=== PATIENT | female | born 1950 | race African-American/Black ===

== ENCOUNTER 2016-11-20 10:17 | Emergency (ER) | payer BC ==
[~2016-11-20 10:17] MED LIST: AMB10 PO; AMB5 PO; CHANTIX1 PO; CLARIT10 PO; L40 PO; MAXALT-MLT5 MG PO; MONODOX100 MG PO; MUCINEX DM1 TAB PO; NASONEX NAS; NEUR600 PO; NORV10 PO; NORVASC PO; PERCOCET1 TA4 PO; PRILOSEC40 MG PO; PROVENTSOL INH; SPIRIVA INH; SYMBICORT 160/41 INH INH; TRAZ100 PO; ULTRAM50 PO; VENTOLIN HFA INH; [UNRECOGNIZED DRUG - REMARK]
[2016-11-20 12:36] LABS: INFLUENZA A SCREEN NEGATIVE (NEGATIVE); INFLUENZA B SCREEN NEGATIVE (NEGATIVE)
[2016-11-20 13:06] LABS: BASOPHILS 0.3 %; BASOPHILS ABSOLUTE 0.02 10/3/uL (0.0-0.16); EOSINOPHILS 1.1 %; EOSINOPHILS ABSOLUTE 0.07 10/3/uL (0.0-0.53); HEMATOCRIT 37.5 % (36.0-48.0); HEMOGLOBIN 11.7 g/dL (12.0-16.0); LYMPHOCYTES 36.1 %; LYMPHOCYTES ABSOLUTE 2.26 10/3/uL (0.67-4.30); MEAN CORPUS HGB CONC 31.2 g/dL (32.0-36.0); MEAN CORPUSCULAR VOLUME 70.4 fL (80-100); MEAN PLATELET VOLUME 10.6 fL (9.2-13.0); MONOCYTES 5.3 %; MONOCYTES ABSOLUTE 0.33 10/3/uL (0.21-1.20); NEUTROPHILS 57.2 %; NEUTROPHILS ABSOLUTE 3.58 10/3/uL (2.02-8.40); PLATELET COUNT 243 10/3/uL (150-400); RED CELL COUNT 5.33 10/6/uL (4.0-5.6); WHITE BLOOD CELLS 6.3 10/3/uL (4.5-10.5)
[2016-11-20 13:08] LABS: MANUAL DIFF NO %
[2016-11-20 13:21] LABS: ALBUMIN 3.6 G/DL (3.5-5.0); ALKALINE PHOSPHATASE 99 U/L (45-117); BUN (BLOOD UREA NITROGEN) 19 MG/DL (6-23); CALCIUM, SERUM 9.2 MG/DL (8.5-10.4); CHLORIDE, SERUM 106 MMOL/L (96-112); CO2 (CARBON DIOXIDE) 24 MMOL/L (24-34); CPK 75 U/L (0-200); CREATININE 0.89 MG/DL (0.55-1.02); GFR AFRICAN AMERICAN 78 ML/MIN (>=60); GFR NON AFRICAN AMERICAN 67 ML/MIN (>=60); GLOBULIN 3.6 G/DL (2.5-4.1); GLUCOSE, SERUM 92 MG/DL (60-99); POTASSIUM, SERUM 3.9 MMOL/L (3.5-5.3); SGOT(AST) 10 U/L (5-40); SGPT(ALT) 15 U/L (5-65); SODIUM, SERUM 141 MMOL/L (135-148); TOTAL BILIRUBIN 0.6 MG/DL (0-1.2); TOTAL PROTEIN 7.2 G/DL (6.0-8.5)
[2016-11-20 13:23] LABS: PLATELET ESTIMATE ADQ (ADEQUATE)
[2016-11-20 13:24] LABS: RBC MORPHOLOGY NORM (NORMAL)
[2016-11-20 14:22] LABS: ASCORBIC ACID (UR NOT ORDER) 40 (NEG); BILIRUBIN, URINE NEGATIVE (NEG); ER URINALYSIS TAT 0 Hrs 18 Mins; KETONE, URINE 20 MG/DL (NEG); LEUKOCYTE ESTERASE(NOT OR NEG (NEG); NITRITE (URINE) NEG (NEG); WBC (NOT ORDERED) (RFLEX) 1 (0-5)
[2017-01-12] MEDS ORDERED: SPIRIVA INH (15:44)
[2017-01-12] MEDS ORDERED: SYMBICORT 160/41 INH INH (15:45)
[2017-01-12] MEDS ORDERED: PRINZIDE1 TA1 PO (15:46)
[2017-01-12] MEDS ORDERED: PERCOCET 10/3251 TAB PO (15:47)
[2017-01-12] MEDS ORDERED: ACT300 PO (15:47)
[2017-01-12] MEDS ORDERED: PROTONIX PO (15:48)
[2017-01-12] MEDS ORDERED: AMB10 PO (15:48)
[2017-01-12] MEDS ORDERED: PREDNISOLO15 MG/5 M1 OPH (15:49)
[2017-01-12] MEDS ORDERED: ACULAR OPH (15:50)
== END 2016-11-20 15:27 | disposition home or self-care (01) ==
LOC: ER 10:17
PROVIDERS: Emergency Medicine
DX: K29.70 Gastritis, unspecified, without bleeding (principal); T38.0X5A Adverse effect of glucocorticoids and synthetic analogues, initial encounter; J45.909 Unspecified asthma, uncomplicated; J44.9 Chronic obstructive pulmonary disease, unspecified; I10 Essential (primary) hypertension; K21.9 Gastro-esophageal reflux disease without esophagitis; F32.9 Major depressive disorder, single episode, unspecified; F17.200 Nicotine dependence, unspecified, uncomplicated; Z87.01 Personal history of pneumonia (recurrent); Z79.899 Other long term (current) drug therapy
CPT/HCPCS: 71010; 80053; 81001; 82550; 83690; 85025; 87804; 96374; 99285; A9270-GY; C9113; J2405

== ENCOUNTER 2016-12-13 12:17 | Inpatient (IN) | payer BC ==
--- NOTE | ~2016-12-13 | DS ---
Discharge Summary [facility] [address] [facility] [place]. [address] NAME: CHANEL MITCHELL : 48 STATUS : DIS Francisco PAT#: [id number] AGE: 66 ADM/REG DATE : 12/13/16 MR#: [id number] REPORT SERV DATE: 12/16/16 DICTATED BY: HERMILA VALENZUELA DATE: 12/16/16 REPORT STATUS : Draft TRANSCRIBED BY: MODL DATE: 12/16/16 ADMISSION DATE: 12/13/2016 DISCHARGE DATE: 12/16/2016 HOSPITAL COURSE: A 66-year-old female with history of hypertension, COPD, chronic lower extremity edema, GERD, peptic ulcer disease, known additional history of anxiety, obesity, migraine headaches on Topamax, tonsillectomy, abdominal hysterectomy, bilateral rotator cuff surgery, bilateral knee arthroscopy, and total knee replacement. The patient came in with significant anorexia, nausea, vomiting, abdominal pain, diarrhea. The patient states she has lost about 30 pounds the last five weeks, has seen Dr. Hernandez as an outpatient, prescribed Linzess for constipation, took that for two days, resulted in severe diarrhea and as a result, she stopped her Linzess. She did have some increased urinary odor, seemed to have pyuria here, had a CT abdomen and pelvis here, showed no acute intra-abdominal process, got a gallbladder ultrasound. She has had cholelithiasis, no bile duct dilation. I did a HIDA scan. This was normal. She had endoscopy with normal esophagus, stomach, and duodenum visualized. Dr. Perez from GI was consulted. Dr. Perez felt that as well as I did to favor follow up Dr. Hernandez and himself in next two to six weeks for possible elective cholecystectomy. If the patient's UTI symptoms do not improve with Levaquin, Flagyl as well as considering possible extra gallbladder etiology including possible mesenteric pathology. The patient has denied though any postprandial abdominal pain but she does have family member who have early CAD. Could consider possible IBS as well. If indeed with despite Ursodiol, the patient develops biliary colic, could consider possible elective cholecystectomy. CONSULTS: GI and Surgery. DISCHARGE DIAGNOSES: Nausea, vomiting, diarrhea, hypertension, chronic obstructive pulmonary disease, urinary tract infection, weight loss, anorexia has improved to soft diet. DISCHARGE MEDICATIONS: Gabapentin 100 p.o. t.i.d. for neuropathy, multivitamin tablet p.o. daily, nicotine transdermal patch 21 mg patch daily for smoking cessation, Protonix 40 p.o. daily use for 30 days as well as Spiriva, home dose Topamax 25 p.o. daily, Levaquin 750 p.o. daily just for five days, Flagyl 500 p.o. t.i.d., just for five days, Dulera home dose, lisinopril/hydrochlorothiazide 20/12.5 p.o. daily, Percocet p.r.n., and ursodiol 300 p.o. b.i.d. FOLLOWUP: Follow up with Dr. Perez in four to eight weeks. Follow up with PCP in two weeks. Follow up with DAYO Hernandez in two to six weeks. Discharge home with home health if desires. PROCEDURE: Endoscopy, see above. All questions were answered. It took well over 30 minutes to do. Discharge Summary [address] [address] NAME: CHANEL MITCHELL : 48 STATUS : DIS Francisco PAT#: [id number] AGE: 66 ADM/REG DATE : 12/13/16 MR#: [id number] REPORT SERV DATE: 12/16/16 DICTATED BY: HERMILA VALENZUELA DATE: 12/16/16 REPORT STATUS : Draft TRANSCRIBED BY: JATIN DATE: 12/16/16 [place]/JATIN Hermila Valenzuela DO / [id number] CC: DO Columba Pickett M.D.
--- NOTE | ~2016-12-13 | CN ---
Consultation Report [facility] [address] [place]. [address] NAME: CHANEL MITCHELL : 48 STATUS : ADM Francisco PAT#: [id number] AGE: 66 ADM/REG DATE : 12/13/16 MR#: [id number] REPORT SERV DATE: 12/14/16 DICTATED BY: JACE MILLIGAN DATE: 12/14/16 REPORT STATUS : Draft TRANSCRIBED BY: MODL DATE: 12/14/16 CONSULTATION NOTE DATE OF CONSULTATION: HISTORY OF PRESENT ILLNESS: This is a 66-year-old white female, I am seeing for Dr. Harvey Hernandez, admitted with nausea and vomiting intermittently over the last month, some periumbilical abdominal pain, history of reflux. No dysphagia, has had weight loss and anorexia. No bleeding. No fever. She had bilateral knee replacement in September of 2016, and problems with postop constipation that lasted for several weeks, ultimately, was placed on Linzess, and developed some diarrhea related to that. She has had no bowel movement since admission. She had a colonoscopy by Dr. Hernandez in 2012 with colon polyps. Currently, also on therapy with antibiotics for a UTI. CT on admission negative for acute changes. The patient has history of hypertension, COPD, asthma, osteoarthritis, history of migraines, past history of PUD, she has had hysterectomy and shoulder surgery. SOCIAL HISTORY: Positive for nicotine. Negative for EtOH. Negative nonsteroidals. FAMILY HISTORY: Negative for colon cancer. LABORATORY AND DIAGNOSTIC DATA: Chest x-ray unremarkable. White count 7700, hemoglobin 13.9. LFTs were negative. PHYSICAL EXAMINATION: GENERAL: Well-developed, well-nourished black female, alert and oriented x3. HEENT: Anicteric. NECK: Negative. CHEST: Clear to percussion. HEART: Regular rate and rhythm. No murmur or gallop. ABDOMEN: Soft. Tender in the periumbilicus. Bowel sounds are present. EXTREMITIES/NEUROLOGIC: Grossly intact. ASSESSMENT: 1. Nausea, vomiting, abdominal pain, anorexia, and weight loss, negative CT, past history of PUD, positive for nicotine. 2. Hypertension. 3. Chronic obstructive pulmonary disease on aspirin. 4. Urinary tract infection. 5. Bilateral knee replacement in September of 2006, with post constipation treated with Linzess. 6. Past history of colon polyps. Colonoscopy [place] [address] Hernandez. 7. Migraines. 8. Osteoarthritis. Consultation Report [place] [address] [place]. [address] NAME: CHANEL MITCHELL : 48 STATUS : ADM Francisco PAT#: [id number] AGE: 66 ADM/REG DATE : 12/13/16 MR#: [id number] REPORT SERV DATE: 12/14/16 DICTATED BY: JACE MILLIGAN DATE: 12/14/16 REPORT STATUS : Draft TRANSCRIBED BY: JATIN DATE: 12/14/16 SUGGESTIONS: 1. We will schedule for EGD. 2. Continue PPI. 3. If EGD is negative, work up gallbladder. DC/JATIN Jace Milligan M.D. / [id number] CC: Doe Odom Jr, MD Sonya Johnson, M.D. Alan Shikoh, M.D.
--- NOTE | ~2016-12-13 | HP ---
History And Physical [place] [address] [place]. [address] NAME: CHANEL MITCHELL : 48 STATUS : ADM Francisco PAT#: [id number] AGE: 66 ADM/REG DATE : 12/13/16 MR#: [id number] REPORT SERV DATE: 12/13/16 DICTATED BY: BRIDGETT WAHL DATE: 12/13/16 REPORT STATUS : Draft TRANSCRIBED BY: MODL DATE: 12/13/16 DATE OF ADMISSION: 12/13/2016 POINT OF ENTRY: [facility] Emergency Department. PRIMARY CARE PHYSICIAN: Dr. Tellez. PRIMARY LOGISTICS OPERATIONS DIRECTOR: Dr. Rausch. PRIMARY KEYBOARD TEACHER: Dr. Hernandez. CHIEF COMPLAINT: Nausea, vomiting, diarrhea, abdominal pain, weight loss. HISTORY OF PRESENT ILLNESS: Ms. Mitchell is a 66-year-old female with a history of hypertension, COPD, chronic lower extremity edema, as well as a history of gastroesophageal reflux disease and peptic ulcer disease, who presents to the emergency today with a four- to five-week history of anorexia, feeling weak, and fatigued with associated bilateral lower quadrant abdominal pain, nausea, vomiting, and diarrhea. The patient states her symptoms began around the middle of October. It first started with constipation and anorexia as well as nausea and vomiting. She was seen twice in our ER in October with negative workups at that time. She states that she has lost about 30 pounds over the past four to five weeks due to anorexia as well as nausea and vomiting. She states she has bilateral lower quadrant abdominal pain. She called Dr. Hernandez about a week to a week and a half ago and he prescribed some Linzess for the reports of constipation. She took that for two days, which resulted in severe diarrhea and since stopped taking the Linzess, and off the Linzess for about a week now, her diarrhea started to slowly improve. She denies any recent fevers, night sweats, chills, chest pain, cough, sputum production, shortness of breath, melena, hematochezia, hemoptysis, or hematemesis. She does states she has urinary odor for the past four to five days, but again denies any dysuria, urinary frequency, or urgency. Initial evaluation in the emergency department for stable vital signs with a creatinine of 1.30. Her CBC was unremarkable except for a long-standing MCV of 71. CT scan of the abdomen and pelvis was unremarkable. Urinalysis did have pyuria, but it was not a clean catch. She was subsequently admitted to the Hospitalist Service for further evaluation and management. REVIEW OF SYSTEMS: Comprehensive review of systems, otherwise negative unless listed in history of present illness. PREVIOUS MEDICAL HISTORY: 1. Hypertension. 2. COPD and asthma. 3. Anxiety and depression. History And Physical [address] [address] NAME: CHANEL MITCHELL : 48 STATUS : ADM Francisco PAT#: [id number] AGE: 66 ADM/REG DATE : 12/13/16 MR#: [id number] REPORT SERV DATE: 12/13/16 DICTATED BY: BRIDGETT WAHL DATE: 12/13/16 REPORT STATUS : Draft TRANSCRIBED BY: JATIN DATE: 12/13/16 4. Osteoarthritis. 5. Chronic lower extremity edema. 6. History of migraine headaches. 7. History of obesity. 8. History of gastric reflux disease and peptic ulcer disease. SURGICAL HISTORY: 1. Tonsillectomy. 2. Abdominal hysterectomy. 3. Bilateral rotator cuff surgery. 4. Bilateral knee arthroscopy. 5. Bilateral total knee replacement, 09/2016. ALLERGIES: NO KNOWN DRUG ALLERGIES. HOME MEDICATIONS: 1. Ketorolac eye drops b.i.d. both eyes. 2. Lisinopril and hydrochlorothiazide 20/12.5 one tablet daily. 3. Dulera two puffs inhalation b.i.d. 4. Multivitamin one tab daily. 5. Percocet one tab b.i.d. 6. Prednisolone eye drops b.i.d. 7. Spiriva one cap inhalation daily. 8. Topamax 25 mg daily. 9. Ambien 10 mg at bedtime. SOCIAL HISTORY: Does still smoke about a half pack per day, but states that she has cut down significantly over the past four to five weeks secondary to her illness. Denies alcohol. Denies illicits. FAMILY MEDICAL HISTORY: Mother with diabetes and pseudoaneurysm. Father with coronary artery disease and prostate cancer. Siblings with diabetes, coronary artery disease, and hypertension. LABS AND IMAGIN. White count 7.7, hemoglobin 13.9, hematocrit 44.4, platelets 268. MCV is 71. 2. Sodium is 139, potassium 3.4, chloride 101, carbon dioxide 27, BUN 21, creatinine 1.30, glucose is 85, calcium is 9.5, protein is 8.5, albumin 4.4, bilirubin is 1.1. ALT is 18, AST 8, alkaline phosphatase is 114. 3. Lipase is 128. 4. Urinalysis: Specific gravity is 1.029, cloudy with trace ketones, and trace leukocyte esterase with 13 white blood cells per high-powered field, but with 28 epithelial cells and [address] scan of the abdomen and pelvis shows no acute abdominopelvic abnormality. PHYSICAL EXAMINATION: VITAL SIGNS: Temperature is 98.5 degrees Fahrenheit, pulse is 95, respirations 16, History And Physical [address] [address] NAME: CHANEL MITCHELL : 48 STATUS : ADM Francisco PAT#: [id number] AGE: 66 ADM/REG DATE : 12/13/16 MR#: [id number] REPORT SERV DATE: 12/13/16 DICTATED BY: BRIDGETT WAHL DATE: 12/13/16 REPORT STATUS : Draft TRANSCRIBED BY: JATIN DATE: 12/13/16 saturating 98% on room air, blood pressure is 112/67. GENERAL: Patient is awake, alert, in no acute distress. Resting comfortably. She is a well-developed, well-nourished, -[place] female, is at bedside. HEENT: Atraumatic and normocephalic. Slightly dry mucous membranes. Pupils are equal, round, reactive to light and accommodation. Extraocular eye movements are intact. No scleral icterus. NECK: No jugular venous distention. No carotid bruits. CARDIAC: Regular rate and rhythm. No murmurs, rubs, or gallops. Normal S1, S2. LUNGS: Decreased breath sounds in the bilateral bases. Does have occasional inspiratory wheezes, but otherwise no rales, rhonchi, or crackles. ABDOMEN: Soft, mildly tender to palpation in bilateral lower quadrants. Hypoactive bowel sounds throughout. No rebound, guarding, or rigidity. EXTREMITIES: Warm and well perfused. No cyanosis, clubbing, or edema. SKIN: Warm and dry. PSYCH: Affect appropriate. NEURO: Alert, oriented x3. Cranial nerves 2 through 12 are grossly intact. Speech is normal. Gait not assessed. ASSESSMENT AND PLAN: Ms. Mitchell is a 66-year-old female, who presents with a four- to five week history of primarily gastrointestinal complaints of vague bilateral lower quadrant abdominal pain with associated anorexia, nausea, and vomiting with oral intake as well as constipation, now progressed to diarrhea with associated 30-pound weight loss. PROBLEM LIST: 1. Dehydration. 2. Abdominal pain, nausea, vomiting, diarrhea. 3. Anorexia. 4. Weight loss. 5. Hypokalemia. 6. Microcytic anemia. PLAN: 1. Dehydration. We will hold the patient's lisinopril and hydrochlorothiazide, place the patient empirically on some IV fluid hydration. This is all likely secondary to poor oral intake recently. 2. Abdominal pain, nausea, vomiting, diarrhea with anorexia and weight loss. Unclear etiology at this time. She does have a history of gastroesophageal reflux disease and peptic ulcer disease, therefore I will start her empirically on a PPI. Given reports of diarrhea, we will also check stool studies and stool cultures. We will consult the patient's primary banking manager for assistance. She states she has recently had a colonoscopy about a year and a half ago that was otherwise unremarkable, but cannot tell me the last time she had an upper endoscopy. 3. Hypokalemia. Electrolyte repletion protocol. 4. Microcytic anemia. This appears to be long-standing per review of [employer], but we will check occult stool as well as iron studies given other coexisting abdominal complaints as well as weight loss. 5. Weight loss. I think all secondary to poor oral intake and anorexia over the past four History And Physical [address] [address] NAME: CHANEL MITCHELL : 48 STATUS : ADM Francisco PAT#: [id number] AGE: 66 ADM/REG DATE : 12/13/16 MR#: [id number] REPORT SERV DATE: 12/13/16 DICTATED BY: BRIDGETT WAHL DATE: 12/13/16 REPORT STATUS : Draft TRANSCRIBED BY: MODDinorah DATE: 12/13/16 to five weeks, however, given patient's smoking history, I am concerned for possible malignancy. CT scan of the abdomen and pelvis was unremarkable. We will check occult stool as well and check a chest x-ray. 6. Pyuria. The patient has some pyuria on urinalysis, however, was not a sterile sample. We will ask for a sterile sample to be repeated and/or a cath sample to be obtained. We will hold off on antibiotics initiation at this time. 7. Deep venous thrombosis prophylaxis. Lovenox subcu. CODE STATUS: The patient wished to be full code. JCB/MODL Bridgett Wahl MD / [id number] CC: Nick So M.D.
--- NOTE | ~2016-12-13 | EGD ---
EGD REPORT [facility] [address] [place] [address] NAME: CHANEL MITCHELL : 48 STATUS : ADM Francisco PAT#: [id number] AGE: 66 ADM/REG DATE : 12/13/16 MR#: [id number] REPORT SERV DATE: 12/15/16 DICTATED BY: JACE MILLIGAN DATE: 12/15/16 REPORT STATUS : Draft TRANSCRIBED BY: [facility] DATE: 12/15/16 Endoscopy Center Patient Name: Chanel Mitchell Date of : 1950 Attending MD: JACE MILLIGAN MD Procedure Date No Time: 12/15/2016 Procedure: Upper GI endoscopy Indications: Epigastric abdominal pain, Nausea with vomiting, Weight loss Referring MD: ELIDIA TALAMANTES Medicines: as per anesthesia Complications: No immediate complications. Procedure: After obtaining informed consent, the endoscope was passed under direct vision. Throughout the procedure, the patient's blood pressure, pulse, and oxygen saturations were monitored continuously. The GIF [id number] was introduced through the mouth, and advanced to the third part of duodenum. The upper GI endoscopy was accomplished without difficulty. The patient tolerated the procedure. Findings: The examined esophagus was normal. The entire examined stomach was normal. The cardia and gastric fundus were normal on retroflexion. The examined duodenum was normal. Impression: - Normal esophagus. - Normal stomach. - Normal examined duodenum. Recommendation: - Continue present medications. Procedure Code(s): --- Professional --- 06138, Esophagogastroduodenoscopy, flexible, transoral; diagnostic, including collection of specimen(s) by brushing or washing, when performed (separate procedure) Diagnosis Code(s): --- Professional --- R10.13, Epigastric pain R11.2, Nausea with vomiting, unspecified R63.4, Abnormal weight loss CPT copyright 2013 [employer]. All rights reserved. EGD REPORT [address] [place]. [address] NAME: CHANEL MITCHELL : 48 STATUS : ADM Francisco PAT#: [id number] AGE: 66 ADM/REG DATE : 12/13/16 MR#: [id number] REPORT SERV DATE: 12/15/16 DICTATED BY: JACE MILLIGAN. DATE: 12/15/16 REPORT STATUS : Draft TRANSCRIBED BY: [employer] DATE: 12/15/16 The codes documented in this report are preliminary and upon die assembler review may be revised to meet current compliance requirements. JACE MILLIGAN MD 12/15/2016 2:21 PM This report has been signed electronically. Number of Addenda: 0 Note Initiated On: 12/15/2016 2:08 PM Scope Withdrawal Time 0 hours 0 minutes [address] [place] [address] [place] [address]
[2016-12-13 16:26] LABS: BASOPHILS 0.4 %; BASOPHILS ABSOLUTE 0.03 10/3/uL (0.0-0.16); EOSINOPHILS 0.9 %; EOSINOPHILS ABSOLUTE 0.07 10/3/uL (0.0-0.53); HEMATOCRIT 44.4 % (36.0-48.0); HEMOGLOBIN 13.9 g/dL (12.0-16.0); IMMATURE GRANULOCYTES 0.1 %; IMMATURE GRANULOCYTES ABSOLUTE 0.01 10/3/uL (0.0-0.11); LYMPHOCYTES ABSOLUTE 2.68 10/3/uL (0.67-4.30); MANUAL DIFF NO %; MEAN CORPUS HGB CONC 31.3 g/dL (32.0-36.0); MEAN CORPUSCULAR HEMOGLOB 22.3 pg (26.0-34.0); MEAN CORPUSCULAR VOLUME 71.2 fL (80-100); MEAN PLATELET VOLUME 11.1 fL (9.2-13.0); MONOCYTES 6.1 %; MONOCYTES ABSOLUTE 0.47 10/3/uL (0.21-1.20); NEUTROPHILS 57.5 %; PLATELET COUNT 268 10/3/uL (150-400); RBC DISTRIBUTION WIDTH 16.5 % (12.0-16.0); RED CELL COUNT 6.24 10/6/uL (4.0-5.6); WHITE BLOOD CELLS 7.7 10/3/uL (4.5-10.5)
[2016-12-13 16:42] LABS: BUN (BLOOD UREA NITROGEN) 21 MG/DL (6-23); CALCIUM, SERUM 9.5 MG/DL (8.5-10.4); CHLORIDE, SERUM 101 MMOL/L (96-112); CO2 (CARBON DIOXIDE) 27 MMOL/L (24-34); GFR AFRICAN AMERICAN 49 ML/MIN (>=60); GFR NON AFRICAN AMERICAN 42 ML/MIN (>=60); GLUCOSE, SERUM 85 MG/DL (60-99); POTASSIUM, SERUM 3.4 MMOL/L (3.5-5.3); SGOT(AST) 8 U/L (5-40); SGPT(ALT) 18 U/L (5-65); SODIUM, SERUM 139 MMOL/L (135-148); TOTAL PROTEIN 8.5 G/DL (6.0-8.5)
[2016-12-13 16:43] LABS: A/G RATIO 1.1 (0.7-1.9); ALBUMIN 4.4 G/DL (3.5-5.0); ALKALINE PHOSPHATASE 114 U/L (45-117); GLOBULIN 4.1 G/DL (2.5-4.1); TOTAL BILIRUBIN 1.1 MG/DL (0-1.2)
[2016-12-13 16:49] LABS: ANISOCYTOSIS 1+ (5-10/OIF) (0-5/OIF); PLATELET ESTIMATE ADQ (ADEQUATE)
[2016-12-13 16:50] LABS: ACANTHOCYTES OCC (0-2/OIF); ELLIPTOCYTES 1+ (3-10/OIF) (0-2/OIF); OVALOCYTES 1+ (3-10/OIF) (0-2/OIF); SCHISTOCYTES OCC (0-2/OIF)
[2016-12-13 18:23] LABS: ASCORBIC ACID (UR NOT ORDER) NEG (NEG); BILIRUBIN, URINE NEGATIVE (NEG); KETONE, URINE TRACE MG/DL (NEG); LEUKOCYTE ESTERASE(NOT OR TRACE (NEG); NITRITE (URINE) NEG (NEG); WBC (NOT ORDERED) (RFLEX) 13 (0-5)
[2016-12-13 18:24] LABS: ER URINALYSIS TAT 2 Hrs 03 Mins
[2016-12-13] MEDS ORDERED: DULERA 100 MCG/13 GM INH (19:12)
[2016-12-13] MEDS ORDERED: PERCOCET 10/3251 TAB PO (19:13)
[2016-12-13] MEDS ORDERED: TOPAMAX25 PO (19:14)
[2016-12-13] MEDS ORDERED: MULTIVITAMI1 PO (19:14)
[2016-12-13 22:43] LABS: FERRITIN 265 NG/ML (8-252); FREE T4 1.29 NG/DL (0.76-1.46); IRON BINDING CAPACITY 365 MCG/DL (225-410); IRON, SERUM 44 MCG/DL (35-150); TROPONIN I <0.02 NG/ML (<0.05); ULTRASENSITIVE TSH 0.889 MCIU/ML (0.358-3.740)
[2016-12-14 04:27] LABS: BASOPHILS 0.3 %; BASOPHILS ABSOLUTE 0.02 10/3/uL (0.0-0.16); EOSINOPHILS 1.2 %; EOSINOPHILS ABSOLUTE 0.09 10/3/uL (0.0-0.53); HEMOGLOBIN 11.7 g/dL (12.0-16.0); IMMATURE GRANULOCYTES 0.1 %; IMMATURE GRANULOCYTES ABSOLUTE 0.01 10/3/uL (0.0-0.11); LYMPHOCYTES 40.1 %; LYMPHOCYTES ABSOLUTE 2.98 10/3/uL (0.67-4.30); MEAN CORPUS HGB CONC 31.8 g/dL (32.0-36.0); MEAN CORPUSCULAR HEMOGLOB 22.5 pg (26.0-34.0); MEAN CORPUSCULAR VOLUME 70.9 fL (80-100); MEAN PLATELET VOLUME 9.7 fL (9.2-13.0); MONOCYTES 6.6 %; MONOCYTES ABSOLUTE 0.49 10/3/uL (0.21-1.20); NEUTROPHILS 51.7 %; NEUTROPHILS ABSOLUTE 3.84 10/3/uL (2.02-8.40); PLATELET COUNT 248 10/3/uL (150-400); RBC DISTRIBUTION WIDTH 16.2 % (12.0-16.0); RED CELL COUNT 5.19 10/6/uL (4.0-5.6); WHITE BLOOD CELLS 7.4 10/3/uL (4.5-10.5)
[2016-12-14 04:28] LABS: HEMATOCRIT 36.8 % (36.0-48.0); MANUAL DIFF NO %
[2016-12-14 04:41] LABS: BUN (BLOOD UREA NITROGEN) 28 MG/DL (6-23); CALCIUM, SERUM 8.4 MG/DL (8.5-10.4); CHLORIDE, SERUM 106 MMOL/L (96-112); CO2 (CARBON DIOXIDE) 24 MMOL/L (24-34); GFR AFRICAN AMERICAN 54 ML/MIN (>=60); GFR NON AFRICAN AMERICAN 47 ML/MIN (>=60); GLUCOSE, SERUM 75 MG/DL (60-99); POTASSIUM, SERUM 3.7 MMOL/L (3.5-5.3); SODIUM, SERUM 139 MMOL/L (135-148)
[2016-12-14 05:03] LABS: ANISOCYTOSIS 1+ (5-10/OIF) (0-5/OIF); PLATELET ESTIMATE ADQ (ADEQUATE)
[2016-12-14 05:06] LABS: ACANTHOCYTES OCC (0-2/OIF); SCHISTOCYTES OCC (0-2/OIF)
[2016-12-14 15:43] LABS: PROCALCITONIN <0.05 ng/mL (<0.5)
[2016-12-14 16:05] LABS: ASCORBIC ACID (UR NOT ORDER) NEG (NEG); BILIRUBIN, URINE NEGATIVE (NEG); KETONE, URINE 20 MG/DL (NEG); LEUKOCYTE ESTERASE(NOT OR NEG (NEG); WBC (NOT ORDERED) (RFLEX) 3 (0-5)
[2016-12-15 04:52] LABS: BASOPHILS 0.4 %; BASOPHILS ABSOLUTE 0.02 10/3/uL (0.0-0.16); EOSINOPHILS 1.6 %; EOSINOPHILS ABSOLUTE 0.07 10/3/uL (0.0-0.53); HEMATOCRIT 34.3 % (36.0-48.0); HEMOGLOBIN 10.6 g/dL (12.0-16.0); IMMATURE GRANULOCYTES 0.4 %; IMMATURE GRANULOCYTES ABSOLUTE 0.02 10/3/uL (0.0-0.11); LYMPHOCYTES 45.6 %; LYMPHOCYTES ABSOLUTE 2.04 10/3/uL (0.67-4.30); MANUAL DIFF NO %; MEAN CORPUS HGB CONC 30.9 g/dL (32.0-36.0); MEAN CORPUSCULAR HEMOGLOB 22.2 pg (26.0-34.0); MEAN CORPUSCULAR VOLUME 71.9 fL (80-100); MONOCYTES 6.9 %; MONOCYTES ABSOLUTE 0.31 10/3/uL (0.21-1.20); NEUTROPHILS 45.1 %; NEUTROPHILS ABSOLUTE 2.01 10/3/uL (2.02-8.40); PLATELET COUNT 194 10/3/uL (150-400); RBC DISTRIBUTION WIDTH 16.2 % (12.0-16.0); RED CELL COUNT 4.77 10/6/uL (4.0-5.6); WHITE BLOOD CELLS 4.5 10/3/uL (4.5-10.5)
[2016-12-15 05:18] LABS: CALCIUM, SERUM 8.6 MG/DL (8.5-10.4); CHLORIDE, SERUM 110 MMOL/L (96-112); CO2 (CARBON DIOXIDE) 21 MMOL/L (24-34); CREATININE 0.89 MG/DL (0.55-1.02); DIRECT BILIRUBIN 0.1 MG/DL (0.0-0.4); GFR AFRICAN AMERICAN 78 ML/MIN (>=60); GFR NON AFRICAN AMERICAN 67 ML/MIN (>=60); GLUCOSE, SERUM 78 MG/DL (60-99); PHOSPHORUS, SERUM 2.8 MG/DL (2.5-4.5); POTASSIUM, SERUM 3.9 MMOL/L (3.5-5.3); SGOT(AST) 10 U/L (5-40); SGPT(ALT) 11 U/L (5-65); SODIUM, SERUM 141 MMOL/L (135-148)
[2016-12-15 05:22] LABS: ALKALINE PHOSPHATASE 80 U/L (45-117); BUN (BLOOD UREA NITROGEN) 18 MG/DL (6-23); INDIRECT BILIRUBIN(NOT ORDER) 0.4 MG/DL (0.1-0.9); PLATELET ESTIMATE ADQ (ADEQUATE); TOTAL BILIRUBIN 0.5 MG/DL (0-1.2)
[2016-12-15 05:23] LABS: ACANTHOCYTES FEW (3-10/OIF)
[2016-12-16] MEDS ORDERED: NEUR100 PO (17:16)
[2016-12-16] MEDS ORDERED: LEVAQUIN750 MG PO (17:19)
[2016-12-16] MEDS ORDERED: FLAG500TAB PO (17:20)
[2017-01-12] MEDS ORDERED: SPIRIVA INH (15:44)
[2017-01-12] MEDS ORDERED: SYMBICORT 160/41 INH INH (15:45)
[2017-01-12] MEDS ORDERED: PRINZIDE1 TA1 PO (15:46)
[2017-01-12] MEDS ORDERED: PERCOCET 10/3251 TAB PO (15:47)
[2017-01-12] MEDS ORDERED: ACT300 PO (15:47)
[2017-01-12] MEDS ORDERED: PROTONIX PO (15:48)
[2017-01-12] MEDS ORDERED: AMB10 PO (15:48)
[2017-01-12] MEDS ORDERED: PREDNISOLO15 MG/5 M1 OPH (15:49)
[2017-01-12] MEDS ORDERED: ACULAR OPH (15:50)
== END 2016-12-16 17:42 | disposition home or self-care (01) | DRG 392 ==
LOC: ER 12:17 → CDU1 20:25
PROVIDERS: Internal Medicine; Internal Medicine Gastroenterology; Physician Assistant
PROC: 0DJ08ZZ Inspection of Upper Intestinal Tract, Via Natural or Artificial Opening Endoscopic (ICD-10-PCS; principal; 2016-12-15 14:00)
DX: R11.2 Nausea with vomiting, unspecified (principal); J44.9 Chronic obstructive pulmonary disease, unspecified; K27.7 Chronic peptic ulcer, site unspecified, without hemorrhage or perforation; I10 Essential (primary) hypertension; F17.210 Nicotine dependence, cigarettes, uncomplicated; D50.9 Iron deficiency anemia, unspecified; N39.0 Urinary tract infection, site not specified; E86.0 Dehydration; K21.9 Gastro-esophageal reflux disease without esophagitis; F32.9 Major depressive disorder, single episode, unspecified; F41.9 Anxiety disorder, unspecified; Z96.653 Presence of artificial knee joint, bilateral; Z82.49 Family history of ischemic heart disease and other diseases of the circulatory system; E87.6 Hypokalemia; Z79.82 Long term (current) use of aspirin; J45.909 Unspecified asthma, uncomplicated
CPT/HCPCS: 71020; 74176; 76705; 78227; 80048; 80053; 80076; 81001; 82728; 83540; 83550; 83690; 83735; 84100; 84145; 84439; 84443; 84484; 85025; 93005; 94640; 99285; A9270-GY; A9537; C9113; J1170; J1956; J2405; J2805

== ENCOUNTER 2017-01-13 06:20 | Day surgery (SDC) | payer BC ==
--- NOTE | ~2017-01-13 | OP ---
Record Of Operation [facility] [address] [place]. [address] NAME: CHANEL MITCHELL : 48 STATUS : [facility]#: [id number] AGE: 66 ADM/REG DATE : 01/13/17 MR#: [id number] REPORT SERV DATE: 01/14/17 DICTATED BY: JOSE MIGUEL RUTH DATE: 01/14/17 REPORT STATUS : Draft TRANSCRIBED BY: MODL DATE: 01/14/17 DATE OF PROCEDURE: 01/13/2017 PREOPERATIVE DIAGNOSIS: Chronic cholecystitis with cholelithiasis. POSTOPERATIVE DIAGNOSIS: Chronic cholecystitis with cholelithiasis. PROCEDURE: Laparoscopic cholecystectomy (two-site). SURGEON: Jose Miguel Ruth M.D. DESCRIPTION OF OPERATIVE PROCEDURE: The patient was brought to operating suite, placed in the supine position, underwent satisfactory general endotracheal anesthesia without incident. The skin of the abdomen was scrubbed, prepped, and draped in usual sterile fashion. 0.5% Marcaine with epinephrine was utilized as supplemental local anesthesia. Initially, an infraumbilical incision was performed dissecting through the skin and subcutaneous tissue to the umbilical fascia. This was in turn grasped with a Pauline clamp and elevated. A disposable Veress insufflation needle was inserted through the umbilical fascia into the peritoneal cavity. Intraperitoneal tip location was next ascertained using the saline hanging drop method, following which CO2 was insufflated for pressures of 15 mmHg throughout the case. After adequate insufflation pressure was achieved, Veress needle was removed, disposable bladed shielded 11 mm trocar was inserted through the umbilical fascia into the peritoneal cavity, following which a rigid forward-viewing 10 mm laparoscope was inserted. Visualization of the intraabdominal parietes revealed no evidence of injury from the initial insufflation or puncture. A cursory examination pelvis was normal. Attention was then turned to the upper abdomen where an additional 5 mm trocar was placed just to the right of falciform ligament. An additional 5 mm grasping instrument was inserted through the umbilical fascia next to the umbilical trocar. The fundus and body of the gallbladder was grasped and elevated exposing the infundibular region. Dissection of triangle of Calot was successful in identifying and skeletonizing the cystic duct and cystic duct, common duct junction, as well as the cystic artery. Both of these structures were controlled with multiple applications of the Weck 5 mm polymer clip system and divided. Then using spatula cautery dissection, the peritoneal attachments of the gallbladder of the liver were divided. The gallbladder was removed from the subhepatic space. Hemostasis was assured. Next, the camera was switched to the epigastric port. Gallbladder was grasped by its neck and withdrawn through the umbilical port. It was found to contain a single stones. CO2 was allowed to egress from peritoneal cavity. No muscular bleeding was noted. Record Of Operation [address] [place]. [address] NAME: CHANEL MITCHELL : 48 STATUS : [facility] PAT#: [id number] AGE: 66 ADM/REG DATE : 01/13/17 MR#: [id number] REPORT SERV DATE: 01/14/17 DICTATED BY: JOSE MIGUEL RUTH DATE: 01/14/17 REPORT STATUS : Draft TRANSCRIBED BY: JATIN DATE: 01/14/17 The umbilicus was closed with [id number] suture of 0 Vicryl. Subcutaneous tissue closed with interrupted 4-0 Vicryl, running subcuticular stitch of 4-0 Vicryl for the skin. Dermabond and skin adhesive were placed. The patient tolerated the procedure well and she was returned to PACU in stable condition. At the termination of the procedure sponge, needle, lap, and instrument counts were correct x3. ESTIMATED BLOOD LOSS: Less than 5 mL. BRANDI/JATIN Jose Miguel Ruth M.D. / [id number] CC: Nick Liu M.D.
[~2017-01-13 06:20] MED LIST changes: +ACT300 PO; +ACULAR OPH; +DULERA 100 MCG/13 GM INH; +FLAG500TAB PO; +LEVAQUIN750 MG PO; +MULTIVITAMI1 PO; +NEUR100 PO; +PERCOCET 10/3251 TAB PO; +PREDNISOLO15 MG/5 M1 OPH; +PRINZIDE1 TA1 PO; +PROTONIX PO; +TOPAMAX25 PO
[2017-01-13 07:42] LABS: HEMATOCRIT 34.7 % (36.0-48.0)
[2017-01-13 07:54] LABS: CALCIUM, SERUM 9.3 MG/DL (8.5-10.4); CHLORIDE, SERUM 108 MMOL/L (96-112); CREATININE 0.96 MG/DL (0.55-1.02); GFR AFRICAN AMERICAN 71 ML/MIN (>=60); GFR NON AFRICAN AMERICAN 61 ML/MIN (>=60); GLUCOSE, SERUM 87 MG/DL (60-99); POTASSIUM, SERUM 4.3 MMOL/L (3.5-5.3); SODIUM, SERUM 144 MMOL/L (135-148)
[2017-01-13 07:55] LABS: BUN (BLOOD UREA NITROGEN) 12 MG/DL (6-23); CO2 (CARBON DIOXIDE) 30 MMOL/L (24-34)
== END 2017-01-13 15:19 | disposition home or self-care (01) ==
LOC: SDC 06:20
PROVIDERS: Specialist
PROC: 0FT44ZZ Resection of Gallbladder, Percutaneous Endoscopic Approach (ICD-10-PCS; principal; 2017-01-13 07:45)
DX: K80.10 Calculus of gallbladder with chronic cholecystitis without obstruction (principal); K82.4 Cholesterolosis of gallbladder; F41.9 Anxiety disorder, unspecified; F17.200 Nicotine dependence, unspecified, uncomplicated; I10 Essential (primary) hypertension; J44.9 Chronic obstructive pulmonary disease, unspecified; M19.90 Unspecified osteoarthritis, unspecified site; G43.909 Migraine, unspecified, not intractable, without status migrainosus; F32.9 Major depressive disorder, single episode, unspecified; N39.0 Urinary tract infection, site not specified; K21.9 Gastro-esophageal reflux disease without esophagitis; Z90.710 Acquired absence of both cervix and uterus; Z90.49 Acquired absence of other specified parts of digestive tract; Z90.89 Acquired absence of other organs; Z96.653 Presence of artificial knee joint, bilateral
CPT/HCPCS: 80048; 85014; 85018; 88304; A9270-GY; J0690; J1170; J1885; J2250; J2370; J2405; J2710; J3010; Q9967